=== PATIENT | female | born 1995 | race Caucasian/White ===

== ENCOUNTER 2017-12-02 15:24 | Outpatient (CLI) | payer OTHER | END 2017-12-02 16:40 | disposition home or self-care (01) | LOC: NST 15:24 | DX: O32.1XX0 Maternal care for breech presentation, not applicable or unspecified (principal); Z34.83 Encounter for supervision of other normal pregnancy, third trimester ==

== ENCOUNTER → 2017-12-05 | Outpatient (CLI) | payer OTHER | END | disposition home or self-care (01) | LOC: NST 18:58 | DX: Z34.83 Encounter for supervision of other normal pregnancy, third trimester (principal) ==

== ENCOUNTER 2017-12-08 15:56 | Inpatient (IN) | payer OTHER ==
[~2017-12-08] VITALS: Ht 157.5 cm; Wt 82.1 kg
[2017-12-11] MEDS ORDERED: PRENATAL + DHA1 EAC1 PO (14:47)
== END 2017-12-13 12:33 | disposition home or self-care (01) | DRG 766 ==
LOC: OB/GYN 12-11 11:18 → LDR 12-11 11:18 → OB/GYN 12-11 15:34
PROVIDERS: Obstetrics & Gynecology
PROC: 4A1HXCZ Monitoring of Products of Conception, Cardiac Rate, External Approach (ICD-10-PCS; 2017-12-11)
PROC: 4A033R1 Measurement of Arterial Saturation, Peripheral, Percutaneous Approach (ICD-10-PCS; 2017-12-11)
PROC: 10D00Z1 Extraction of Products of Conception, Low, Open Approach (ICD-10-PCS; principal; 2017-12-11 15:45)
DX: O32.1XX0 Maternal care for breech presentation, not applicable or unspecified (principal); Z3A.39 39 weeks gestation of pregnancy; Z37.0 Single live birth

== ENCOUNTER 2017-12-11 10:13 | Outpatient (CLI) | payer OTHER ==
[2017-12-11] MEDS ORDERED: PRENATAL + DHA1 EAC1 PO (14:47)
== END 2017-12-11 11:48 | disposition still patient (30) ==
LOC: NST 10:13
DX: Z34.83 Encounter for supervision of other normal pregnancy, third trimester (principal)